=== PATIENT | male | born 1975 | race Two or more races ===

== ENCOUNTER 2017-10-18 20:15 | Emergency (ER) | payer MEDICAID ==
[~2017-10-18] VITALS: Ht 175.3 cm; Wt 90.7 kg
[2017-10-18 20:23] VITALS: BP 123/85
== END 2017-10-18 23:07 | disposition home or self-care (01) ==
LOC: ER 20:15
DX: J02.9 Acute pharyngitis, unspecified (principal); J40 Bronchitis, not specified as acute or chronic; Z90.49 Acquired absence of other specified parts of digestive tract
CPT/HCPCS: 71045